=== PATIENT | female | born 1995 ===

== ENCOUNTER 2016-11-23 08:11 | Emergency (ER) | payer MEDICAID, OTHER ==
[2016-11-23 08:19] VITALS: RESP 18
[2016-11-23 08:43] LABS: HCG,QUALITATIVE URINE NEGATIVE (NEGATIVE)
[2016-11-23 08:59] LABS: SQUAMOUS EPITHIAL 3 /hpf (0-5); URINE BILIRUBIN NEGATIVE (NEGATIVE); URINE BLOOD 2+ (NEGATIVE); URINE CLARITY Hazy (Clear); URINE COLOR Yellow (YELLOW); URINE GLUCOSE (UA) NORMAL (Normal); URINE LEUKOCYTE ESTERASE 3+ Leu/uL (Negative); URINE NITRATE NEGATIVE (NEGATIVE); URINE PROTEIN 2+ mg/dL (NEGATIVE); URINE UROBILINOGEN NORMAL mg/dL (0.2-1.0); WBC CLUMPS MANY /hpf
[2016-11-23] MEDS ORDERED: cefTRIAXone IV 1 gm in Dextros 50 ML IV ONE (09:00)
[2016-11-23 09:36] LABS: BASO % 0.3 % (0.0-2.0); EOS # 0.1 K/uL (0.0-0.7); EOS % 0.5 % (0.0-4.0); HEMOGLOBIN 11.6 g/dL (11.0-16.0); LYMPH # 1.2 K/uL (1.0-4.3); LYMPH % 11.3 % (20.0-40.0); MEAN CELL VOLUME 81.5 fL (81.0-99.0); MEAN CORPUSCULAR HEMOGLOBIN 26.2 pg (27.0-31.0); MEAN CORPUSCULAR HGB CONC 32.1 g/dL (33.0-37.0); MEAN PLATELET VOLUME 8.3 fL (7.2-11.7); MONO # 1.3 K/uL (0.0-0.8); MONO % 11.9 % (0.0-10.0); NEUT # 8.3 K/uL (1.8-7.0); RBC 4.41 Mil/uL (3.80-5.20); RED CELL DISTRIBUTION WIDTH 14.6 % (11.5-14.5); WHITE BLOOD COUNT 10.9 K/uL (4.8-10.8)
[2016-11-23 09:41] LABS: ALBUMIN 3.6 g/dL (3.5-5.0)
[2016-11-23 09:43] LABS: GFR AFRICAN-AMERICAN > 60; GFR NON-AFRICAN AMERICAN > 60
[2016-11-23 09:44] LABS: ALB/GLOB RATIO 1.1 (1.0-2.1); ALT/SGPT 24 U/L (9-52); AST/SGOT 18 U/L (14-36); BLOOD UREA NITROGEN 7 mg/dL (7-17)
[2016-11-23 09:45] LABS: CALCIUM 8.4 mg/dl (8.6-10.4)
--- NOTE | 2016-11-23 10:19 | C.PDOC ---
History Of Present Illness 21 y/o female presents to the ED for evaluation of dysuria and urinary frequency for 5 days. Notes taking Advil this morning for a subjective fever. (+ ) back pain. (+) vaginal discharge- white, no itching. (+) sexually active with protection use. Denies history of [employer] visits. Otherwise, denies any abdominal pain, pelvic pain, n/v/d, incontinence, hematuria, abnormal vaginal bleeding, or any other associated symptoms at this time. Time Seen by Provider: 11/23/16 08:19 Chief Complaint (Nursing): Female Genitourinary History Per: Patient History/Exam Limitations: no limitations Onset/Duration Of Symptoms: Days (5) Current Symptoms Are (Timing): Still Present Quality Of Discomfort: "Pain" Associated Symptoms: Back Pain, Urinary Symptoms. denies: Fever, Chills, Nausea , Vomiting, Diarrhea, Loss Of Appetite, Chest Pain, Constipation Alleviating Factors: None Recent travel outside of the [place]: No Additional History Per: Patient Abnormal Vaginal Bleeding: No Past Medical History Reviewed: Historical Data, Nursing Documentation, Vital Signs Vital Signs: Last Vital Signs Temp 99.1 F 11/23/16 11:05 Pulse 80 11/23/16 11:05 Resp 18 11/23/16 08:13 BP 114/75 11/23/16 11:05 Pulse Ox 99 11/23/16 11:05 - [facility] FASCIOTOMY (03/10/13) OTHER SKIN & SUBQ I D (05/07/13) Family History: States: Unknown Family Hx - Social History Hx Alcohol Use: No Hx Substance Use: No Review Of Systems Except As Marked, All Systems Reviewed And Found Negative. Constitutional: Positive for: Fever Gastrointestinal: Negative for: Nausea, Vomiting, Abdominal Pain, Diarrhea, Constipation Genitourinary: Positive for: Dysuria, Frequency, Vaginal Discharge. Negative for: Incontinence, Hematuria, Vaginal Bleeding, Pelvic Pain Musculoskeletal: Positive for: Back Pain Skin: Negative for: Rash, Bruising Neurological: Negative for: Weakness, Numbness Physical Exam - Physical Exam Appears: Non-toxic, No Acute Distress Skin: Normal Color, Warm, Dry Head: Atraumatic, Normacephalic Eye(s): bilateral: Normal Inspection, EOMI Nose: Normal Oral Mucosa: Moist Neck: Normal ROM, Supple Chest: Symmetrical Cardiovascular: Rhythm Regular, No Murmur Respiratory: Normal Breath Sounds, No Rales, No Rhonchi, No Wheezing Gastrointestinal/Abdominal: Soft, No Tenderness Back: Normal Inspection, No CVA Tenderness, No Vertebral Tenderness, No Paraspinal Tenderness Pelvic: Normal External Exam, No Vaginal Bleeding, Vaginal Discharge (white discharge ), No Cervical Motion Tenderness, No Adnexal Tenderness Extremity: Normal ROM Neurological/Psych: Oriented x3, Normal Speech ED Course And Treatment - Laboratory Results Result Diagrams: 11/23/16 09:29 11/23/16 09:29 O2 Sat by Pulse Oximetry: 96 (RA) Pulse Ox Interpretation: Normal Progress Note: Plan: Blood work, urinalysis, urine culture, chlamydia/GC. Patient was given Pyridium, Zithromax, and Rocephin. On re-eval, patient is resting comfortably, and is in no acute distress. Notes feeling better. Patient was instructed to follow up with physician/clinic in 1-2 days for further evaluation. Case discussed with Dr Jimenez, agreed upon plan and treatment. Disposition - Disposition Disposition: HOME/ ROUTINE Disposition Time: 10:57 Condition: STABLE Additional Instructions: Follow up with your primary medical doctor or clinic in 2-5 days for further evaluation. Take medications as prescribed. Return to the emergency department at any time if symptoms persist or worsen. Prescriptions: Sulfamethoxazole/Trimethoprim [Bactrim DS 800 mg-160 mg] 1 tab PO BID #14 tab Instructions: Urinary Tract Infection in Women (ED) Forms: [facility] (Sinhala) - Clinical Impression Clinical Impression: UTI (urinary tract infection), Possible exposure to STD - PA / CONTINUOUS [employer] / Resident Statement MD/DO has reviewed & agrees with the documentation as recorded. - Scribe Statement The provider has reviewed the documentation as recorded by the Dot Junior All medical record entries made by the Dot were at my direction and personally dictated by me. I have reviewed the chart and agree that the record accurately reflects my personal performance of the history, physical exam, medical decision making, and the department course for this patient. I have also personally directed, reviewed, and agree with the discharge instructions and disposition.
[2016-11-23 11:06] VITALS: BP 114/75; PULSE 80; TEMP 99.1
[2016-11-23 12:25] VITALS: O2SAT 96
== END 2016-11-23 11:31 | disposition home or self-care (01) ==
LOC: C.ER 08:11
DX: N39.0 Urinary tract infection, site not specified (principal)
CPT/HCPCS: 80053; 81001; 84703; 85025; 87086; 87181; 87491; 87591; 96365; 99285; J0696